=== PATIENT | female | born 1950 | race Hispanic/Latino ===

== ENCOUNTER 2020-07-16 12:04 | Observation (INO) | payer MEDICARE ==
[2020-07-16] VITALS (21 sets, daily range): BP systolic 103–151; BP diastolic 6–72
[~2020-07-16] VITALS: Ht 160 cm; Wt 55.3 kg
[2020-07-16] MEDS ORDERED: PROPOFOL 10 MG/ML 20ML VIAL IV ONE ×2 (14:32)
[2020-07-16] MEDS ORDERED: SUCCINYLCHOLINE 200MG/10ML SYR ONE (14:42)
[2020-07-16] MEDS ORDERED: EPINEPHRINE PF 1MG AMP ONE (14:44)
[2020-07-16] MEDS ORDERED: METOCLOPRAMIDE 10 MG/2 ML VIAL ONE (15:09)
[2020-07-16] MEDS ORDERED: PANTOPRAZOLE 40 MG/VIAL IVP SCH ×2 (16:45→21:00)
[2020-07-16] MEDS ORDERED: PANTOPRAZOLE 40 MG TAB DR PO SCH (17:00)
[2020-07-16] MEDS ORDERED: LISI40TA9 PO (17:42)
[2020-07-16] MEDS ORDERED: AMLO-257 PO (17:42)
[2020-07-16] MEDS ORDERED: FOLI0.8T3 PO (17:42)
[2020-07-16] MEDS: 0.9%NACL 1000ML 1,000 ML IV SCH (18:18)
[2020-07-16] MEDS: SUCRALFATE 1 GM TABLET PO SCH ×2 (18:18→23:46)
[2020-07-16] MEDS ORDERED: OMEP40CA21 PO (18:28)
[2020-07-16] MEDS ORDERED: METH2.5T6 PO (18:28)
[2020-07-16 19:09] LABS: BASOPHILS % (AUTO) 0.3 % (0.0-5.0); EOSINOPHILS % (AUTO) 0.1 % (0.0-8.0); HEMATOCRIT 25.1 % (36-48); LYMPHOCYTES % (AUTO) 4.1 % (21.0-51.0); MEAN CORPUSCULAR HEMOGLOBIN 23.6 pg (27.0-33.0); MEAN CORPUSCULAR HGB CONC 29.9 g/dL (32.0-36.0); MEAN CORPUSCULAR VOLUME 78.9 fL (79-99); MONOCYTES % (AUTO) 5.3 % (3.0-13.0); NEUTROPHILS % (AUTO) 89.8 % (40.0-77.0); PLATELET COUNT (AUTO) 209 K/uL (130-400); RED BLOOD CELL COUNT(AUTO) 3.18 MIL/uL (4.00-5.50); WHITE BLOOD COUNT (AUTO) 15.9 K/uL (4.8-10.8)
[2020-07-16 19:19] LABS: CREATININE 0.7 mg/dL (0.5-1.5); POTASSIUM 4.2 mmol/L (3.5-5.1)
[2020-07-16] MEDS: PANTOPRAZOLE 40 MG TAB DR PO SCH ×2 (20:56→20:57)
[2020-07-16 23:36] LABS: HEMATOCRIT 23.3 % (36-48)
[2020-07-17] MEDS ORDERED: 0.9%NACL 100ML 100 ML IV ONE (01:26)
[2020-07-17 03:20] VITALS: BP 99/52
[2020-07-17] MEDS: SUCRALFATE 1 GM TABLET PO SCH ×3 (04:42→16:45)
[2020-07-17 05:44] LABS: BASOPHILS % (AUTO) 0.2 % (0.0-5.0); EOSINOPHILS % (AUTO) 1.4 % (0.0-8.0); HEMATOCRIT 28.4 % (36-48); LYMPHOCYTES % (AUTO) 6.1 % (21.0-51.0); MEAN CORPUSCULAR HEMOGLOBIN 24.2 pg (27.0-33.0); MEAN CORPUSCULAR HGB CONC 30.3 g/dL (32.0-36.0); MONOCYTES % (AUTO) 4.3 % (3.0-13.0); NEUTROPHILS % (AUTO) 87.5 % (40.0-77.0); PLATELET COUNT (AUTO) 179 K/uL (130-400); RED BLOOD CELL COUNT(AUTO) 3.55 MIL/uL (4.00-5.50); RED CELL DISTRIBUTION WIDTH 17.3 % (11.0-15.5); WHITE BLOOD COUNT (AUTO) 10.4 K/uL (4.8-10.8)
[2020-07-17 06:12] LABS: % IRON SATURATION 11.4 % (22-44)
[2020-07-17 06:16] LABS: CREATININE 0.6 mg/dL (0.5-1.5); POTASSIUM 3.7 mmol/L (3.5-5.1); THYROID STIMULATING HORMONE 0.72 uIU/mL (0.36-3.74)
[2020-07-17 08:46] VITALS: BP 112/55
[2020-07-17] MEDS: PANTOPRAZOLE 40 MG TAB DR PO SCH (10:04)
[2020-07-17 10:36] LABS: HEMATOCRIT 28.2 % (36-48)
[2020-07-17] MEDS ORDERED: METHOTREXATE SODIUM 2.5 MG TABLET PO SCH (10:51)
[2020-07-17] MEDS ORDERED: FOLIC ACID 1 MG TABLET PO SCH (10:51)
[2020-07-17 11:00] VITALS: BP 112/53
[2020-07-17] MEDS: 0.9%NACL 1000ML 1,000 ML IV SCH (11:21)
[2020-07-17 17:06] VITALS: BP 116/54
[2020-08-19] MEDS ORDERED: SUCR1TAB2 PO (14:38)
[2020-08-19] MEDS ORDERED: DENO60DI SQ (14:38)
[2020-08-19] MEDS ORDERED: [UNRECOGNIZED DRUG - CODE] PO (14:38)
[2020-08-19] MEDS ORDERED: PANT40TA54 PO (14:38)
== END 2020-07-17 17:50 | disposition home or self-care (01) ==
LOC: EDBD 12:04 → EDH 12:04 → EDHIP 16:47 → 3CH 17:43
PROVIDERS: ADMIT Internal Medicine; ATTEND Internal Medicine
DX: K92.0 Hematemesis (principal); S27.818A Other injury of esophagus (thoracic part), initial encounter; D64.9 Anemia, unspecified; K22.2 Esophageal obstruction; K31.89 Other diseases of stomach and duodenum; I10 Essential (primary) hypertension; K21.9 Gastro-esophageal reflux disease without esophagitis; E11.9 Type 2 diabetes mellitus without complications; Z79.899 Other long term (current) drug therapy; X58.XXXA Exposure to other specified factors, initial encounter; Y93.89 Activity, other specified; Y92.89 Other specified places as the place of occurrence of the external cause
CPT/HCPCS: 36415 ×2; 36430; 43255; 80048 ×2; 83540; 83550; 84443; 85014 ×3; 85018 ×3; 85025 ×2; 85045; 86850; 86900; 86901; 86923; 96360; 96361 ×2; 99284; A4215; A4216; A4222; A4223; A4335; A4620; A4657; G0378 ×23; J0171; J2704 ×2; J2765; J7030; J8610; P9016; J0330

== ENCOUNTER 2020-08-20 08:44 | Day surgery (SDC) | payer MEDICARE ==
[~2020-08-20] VITALS: Ht 160 cm; Wt 55.8 kg
[2020-08-20] VITALS (15 sets, daily range): BP systolic 128–154; BP diastolic 53–74
[~2020-08-20 08:44] MED LIST: AMLO-257 PO; DENO60DI SQ; FOLI0.8T3 PO; IOHEXOL-350 50ML VIAL IV ONE; LISI40TA9 PO; METH2.5T6 PO; OMEP40CA13 PO; PANT40TA54 PO; SODIUM CHLORIDE 0.9% 1000ML 1,000 ML IV ONE; SUCR1TAB2 PO; [UNRECOGNIZED DRUG - CODE] PO
[2020-08-20] MEDS ORDERED: DEXAMETHASONE SOD PHOSPHATE 10MG/ML 1ML VIAL ONE (09:54)
[2020-08-20] MEDS ORDERED: LIDOCAINE PF 2% 5ML ABBOJECT ONE (09:54)
[2020-08-20] MEDS ORDERED: SUCCINYLCHOLINE 200MG/10ML SYR ONE (09:54)
[2020-08-20] MEDS ORDERED: ROCURONIUM 10MG/1ML SYR 10 MG/ML ML ONE (09:55)
[2020-08-20] MEDS ORDERED: ONDANSETRON HCL 4 MG/2 ML VIAL ONE (09:55)
[2020-08-20] MEDS ORDERED: FENTANYL CITRATE PF 50 MCG/1 ML 2ML VIAL ONE (09:55)
[2020-08-20] MEDS ORDERED: PROPOFOL 10 MG/ML 20ML VIAL IV ONE (09:55)
[2020-08-20] MEDS ORDERED: GLYCOPYRROLATE 1 MG/5 ML SYRINGE ONE (09:55)
[2020-08-20] MEDS ORDERED: NEOSTIGMINE 5MG/5ML SYR IV ONE (09:55)
[2020-08-20] MEDS ORDERED: MIDAZOLAM HCL 1 MG/ML 2ML VIAL ONE (09:55)
== END 2020-08-20 12:15 | disposition home or self-care (01) ==
LOC: DAH 08:44 → ENDO 08:44
PROVIDERS: ATTEND Internal Medicine Gastroenterology
DX: K22.2 Esophageal obstruction (principal); Z20.822 Contact with and (suspected) exposure to COVID-19; I10 Essential (primary) hypertension; K21.00 Gastro-esophageal reflux disease with esophagitis, without bleeding; D64.9 Anemia, unspecified; M81.0 Age-related osteoporosis without current pathological fracture; K80.30 Calculus of bile duct with cholangitis, unspecified, without obstruction; K92.1 Melena; M19.90 Unspecified osteoarthritis, unspecified site; Z80.0 Family history of malignant neoplasm of digestive organs; Z87.01 Personal history of pneumonia (recurrent); Z98.891 History of uterine scar from previous surgery; Z72.89 Other problems related to lifestyle; Z86.010 Personal history of colon polyps
CPT/HCPCS: 43235; 76000; 93005; A4215 ×2; A4221; A4222; A4223; A4606; A4615; A4657 ×2; A4663; C9803; J0330; J1100; J2001; J2250; J2405; J2704; J2710; J3010; J3490; J7030; Q9967; U0003; 74330